=== PATIENT | male | born 1990 | race African-American/Black ===

== ENCOUNTER 2019-03-03 11:56 | Emergency (ER) | payer SELFPAY ==
[2019-03-03] MEDS ORDERED: Acetaminophen 500 MG TAB ONE (12:20)
[2019-03-03] MEDS ORDERED: Metoclopramide HCl 10 MG/2 ML VIAL ONE (12:20)
[2019-03-03] MEDS ORDERED: diphenhydrAMINE 50 MG/ML VIAL ONE (12:20)
[2019-03-03 12:41] LABS: #Basophils 0.1 thou/uL (0.0-0.2); #Eosinphils 0.1 thou/uL (0.0-0.7); #Lymphocytes 2.1 thou/uL (1.20-3.40); #Monocytes 0.6 thou/uL (0.11-0.59); #Neutrophils 4.7 thou/uL (1.40-6.50); %Basophils 0.9 % (0.0-1.0); %Eosinophils 1.5 % (0.0-10.0); %Lymphocytes 27.4 % (21.0-51.0); %Monocytes 7.5 % (0.0-10.0); %Neutrophils 62.7 % (42.0-75.0); Hemoglobin 14.9 g/dL (14.0-18.0); Mean Corpuscular Hemoglobin 25.2 pg (27.0-31.0); Mean Corpuscular Volume 81.4 fL (78.0-98.0); Mean Platelet Volume 10.1 fL (7.4-10.4); Platelet Count 171 thou/uL (130-400); RBC Distribution Width 12.8 % (11.5-14.5); Red Blood Cell (RBC) Count 5.92 mill/uL (4.70-6.10); White Blood Cell (WBC) Count 7.5 thou/uL (4.8-10.8)
--- NOTE | 2019-03-03 12:43 | CT ---
FHead CT without contrast 03/03/2019: COMPARISON: none HISTORY: Headache and hypertension TECHNIQUE: Axial CT imaging at 5 mm intervals from vertex through skull base without contrast FINDINGS: The imaged paranasal sinuses and mastoid air cells are well aerated. No displaced calvarial fracture. No intracranial hemorrhage, midline shift, mass effect, or ventricular enlargement. IMPRESSION: No acute findings.
[2019-03-03 13:02] LABS: ALT (SGPT) 36 U/L (8-55); AST (SGOT) 33 U/L (5-34); Alkaline Phosphatase 93 U/L (40-150); Anion Gap 10 mmol/L (10-20); BUN (Urea Nitrogen) 12 mg/dL (8.9-20.6); Bilirubin, Total 0.4 mg/dL (0.2-1.2); CK (CPK) 753 U/L (30-200); Calc. Creatinine Clearance 0 mL/min (70-130); Calcium 9.2 mg/dL (7.8-10.44); Carbon Dioxide 26 mmol/L (22-29); Chloride 107 mmol/L (98-107); Estimated GFR-MDRD 72; Glucose 106 mg/dL (70-105); Sodium 139 mmol/L (136-145)
[2019-03-03 13:28] LABS: Bilirubin Negative (Negative); Blood, Urine Negative (Negative); Clarity CLEAR (Clear); Glucose, Urine (Dipstick) Negative (Negative); Leukocyte Negative (Negative); Nitrite Negative (Negative); Protein, Urine (Dipstick) Negative (Neg-Trace); pH, Urine 7.5 (5.0-9.0)
== END 2019-03-03 13:47 | disposition home or self-care (01) ==
LOC: ERS 11:56
DX: I10 Essential (primary) hypertension (principal); R51 Headache; J45.909 Unspecified asthma, uncomplicated; F41.9 Anxiety disorder, unspecified
CPT/HCPCS: 70450; 80053; 81003; 82550; 84484; 85025; 96365; 96375; J1200; J2765

== ENCOUNTER 2020-06-19 22:36 | Observation (INO) | payer OTHER, SELFPAY ==
--- NOTE | 2020-06-19 23:16 | RAD ---
EXAM: CHEST ONE VIEW HISTORY: Possible Covid exposure at work. Cough, congestion, and chest discomfort. COMPARISON: None FINDINGS: The cardiac silhouette and pulmonary vasculature is within normal limits. The lungs are clear. The os seous structures are intact. IMPRESSION: No acute cardiopulmonary process.
[2020-06-20] MEDS ORDERED: Aspirin Chewable 81 MG TAB ONE
[2020-06-20] MEDS ORDERED: Nitroglycerin 2% Ointment 1 INCH/1 GM Packet ONE
[2020-06-20] MEDS ORDERED: Lisinopril 10 MG TAB ONE (00:01)
[2020-06-20 00:27] LABS: #Basophils 0.1 thou/uL (0.0-0.2); #Eosinphils 0.1 thou/uL (0.0-0.7); #Monocytes 0.7 thou/uL (0.11-0.59); #Neutrophils 4.1 thou/uL (1.40-6.50); %Basophils 1.2 % (0.0-1.0); %Lymphocytes 28.9 % (21.0-51.0); %Monocytes 9.7 % (0.0-10.0); %Neutrophils 59.3 % (42.0-75.0); Hemoglobin 14.2 g/dL (14.0-18.0); Mean Platelet Volume 10.1 fL (7.4-10.4); Platelet Count 184 thou/uL (130-400); RBC Distribution Width 12.9 % (11.5-14.5); Red Blood Cell (RBC) Count 5.92 mill/uL (4.70-6.10); White Blood Cell (WBC) Count 6.9 thou/uL (4.8-10.8)
[2020-06-20 00:48] LABS: ALT (SGPT) 43 U/L (8-55); AST (SGOT) 35 U/L (5-34); Albumin 4.4 g/dL (3.5-5.0); Alkaline Phosphatase 74 U/L (40-110); Anion Gap 12 mmol/L (10-20); BUN (Urea Nitrogen) 13 mg/dL (8.9-20.6); Bilirubin, Total 0.4 mg/dL (0.2-1.2); Calc. Creatinine Clearance 0 mL/min (70-130); Calcium 9.7 mg/dL (7.8-10.44); Carbon Dioxide 28 mmol/L (22-29); Chloride 102 mmol/L (98-107); Estimated GFR-MDRD Greater than 90; Globulin 3.1 g/dL (2.4-3.5); Glucose 76 mg/dL (70-105); Potassium 3.6 mmol/L (3.5-5.1); Protein, Total 7.5 g/dL (6.0-8.3); Sodium 138 mmol/L (136-145)
[2020-06-20] MEDS ORDERED: Morphine 4 MG/ML VIAL ONE (01:02)
[2020-06-20] MEDS ORDERED: Ondansetron PF 4 MG/2 ML Vial ONE (01:02)
--- NOTE | 2020-06-20 01:44 | PDOC.FPRHP ---
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 He rates the pain at 6 when it started and persistently worsened. He endorses dyspnea, notes nothing made the pain or symptoms better or worse. He also endorses cough that started at the same time his chest pain and dyspnea. He denies symptoms like this before. He did not take medications before coming to the ER. He has had a "bad migraine" for the yesterday and the day before. Upon arrival at ED he had a bp of 224/119, was given lisinopril and nitropaste and his bp decreased to 170/107. Patient states he hasn't been taking his home lisinopril due to them running out, is taking amlodipine but has missed some doses. PCP is in [place], [place]. Denies fever, congestion, nausea, vomiting. - Allergies/Adverse Reactions Allergies Allergy/AdvReac Type Severity Reaction Status Date / Time hydromorphone [From Dilaudid] Allergy Verified 06/20/20 03:09 - Home Medications Medication Instructions Recorded Confirmed Type Amlodipine [Norvasc] 5 mg PO QAM 06/20/20 06/20/20 History Lisinopril 5 mg PO QAM 06/20/20 06/20/20 History Multivitamin [Daily Multiple 1 tab PO QAM 06/20/20 06/20/20 History Vitamin] - History PMHx: Asthma, HTN, murmur as a child PSHx: R Knee and shoulder surgery FHx: Diabetes, Prostate CA, Colon CA Social:Black and Milds one QD for 1 year, occasional alcohol use, has smoked MJ , last use 03/2020 - Review of Systems General: denies: fever/chills, weight/appetite/sleep changes Eyes: denies: eye pain, vision changes ENT: denies: nasal congestion, rhinorrhea Respiratory: reports: cough, shortness of breath. denies: congestion Cardiovascular: reports: chest pain. denies: palpitation, edema Gastrointestinal: denies: nausea, vomiting, diarrhea, abdominal pain Genitourinary: denies: incontinence, dysuria Skin: denies: rashes, lesions Musculoskeletal: denies: pain, tenderness Neurological: denies: numbness, syncope Psychological: denies: anxiety, depression - Vital signs 170/106, MAP: 127, Pulse: 85, Resp: 16, Pain: 10, O2 sat: 96 on RA - Physical Exam Constitutional: NAD, awake, alert and oriented, well developed HEENT: normocephalic and atraumatic, conjunctiva clear, grossly normal hearing Neck: supple, FROM, other (acanthosis) Chest: no lesions, other (TTP on left side of chest wall laterally, along anterior axillary line) Heart: RRR, normal S1/S2, no murmurs/rubs/gallops Lungs: CTAB, no respiratory distress, no rales/rhonchi, no wheezing, no retractions Abdomen: soft, non-tender Musculoskeletal: normal structure, normal tone, ROM grossly normal Neurological: no focal deficit, normal sensation Skin: no rash/lesions, good turgor Heme/Lymphatic: no unusual bruising or bleeding, no purpura, no petechia Psychiatric: normal mood and affect, good judgment and insight, intact recent and remote memory FMR H&P: Results - Labs Result Diagrams: 06/20/20 00:15 06/20/20 00:15 Lab results: WBC 6.9 thou/uL (4.8-10.8) 06/20/20 00:15 Hgb 14.2 g/dL (14.0-18.0) 06/20/20 00:15 Hct 47.4 % (42.0-52.0) 06/20/20 00:15 MCV 80.0 fL (78.0-98.0) 06/20/20 00:15 Plt Count 184 thou/uL (130-400) 06/20/20 00:15 Neutrophils % 59.3 % (42.0-75.0) 06/20/20 00:15 Sodium 138 mmol/L (136-145) 06/20/20 00:15 Potassium 3.6 mmol/L (3.5-5.1) 06/20/20 00:15 Chloride 102 mmol/L (98-107) 06/20/20 00:15 Carbon Dioxide 28 mmol/L (22-29) 06/20/20 00:15 BUN 13 mg/dL (8.9-20.6) 06/20/20 00:15 Creatinine 1.08 mg/dL (0.7-1.3) 06/20/20 00:15 Glucose 76 mg/dL (70-105) 06/20/20 00:15 Calcium 9.7 mg/dL (7.8-10.44) 06/20/20 00:15 Total Bilirubin 0.4 mg/dL (0.2-1.2) 06/20/20 00:15 AST 35 U/L (5-34) H 06/20/20 00:15 ALT 43 U/L (8-55) 06/20/20 00:15 Alkaline Phosphatase 74 U/L (40-110) 06/20/20 00:15 B-Natriuretic Peptide Less than 10.0 pg/mL (0-100) 06/20/20 00:15 Serum Total Protein 7.5 g/dL (6.0-8.3) 06/20/20 00:15 Albumin 4.4 g/dL (3.5-5.0) 06/20/20 00:15 - EKG Interpretation EKG: NS, LVH FMR H&P: A/P - Plan Atypical Chest Pain TTP along lateral chest wall, chest pain likely 2/2 muscle strain Troponin x1 negative, EKG showing no ischemic changes - Heart Score 4 - Possibly HARPER complicating HTN. Can consider outpatient work up. - A1c as patient had acanthosis and fam history of DM - Endorsed some history of marijuana, but no recent use. UDS ordered. - Will trend troponin - Tylenol prn, Ibuprofen 800 scheduled, flexeril 5mg PO TID prn - Will continue to monitor on tele HTN BPs 224//119 at admission, now 170/ 107 Per patient, not taking home lisinopril - restart home norvasc 5mg daily and lisinopril 10mg daily - PRN hydralazine SBP >180 - q4hr vitals DVT PPX: SCDs PCP: none Code: Full LOS<48 hrs, admitted to tele obs for chest pain FMR H&P: Upper Level - Plan Date/Time: 06/20/20141 IRody MD, have evaluated this patient and agree with findings/plan as outlined by music industry internship resident. Pertinent changes/additions are listed here. This is a 28yo AA M who PMH of HTN presenting today after work due to chest pain. He reports chest pain is sharp, radiates down his arm and has tingling in L arm as well. He reports cough that is productive. Denies fever, chills, NVD, abd pain. Endorses palpitations. Endorses occasional headaches worse over the last day or so. Reports chest pain worse with inspiration and palpation. Admits to previous drug use but nothing recently. Patient states that he is on amlodipine and lisinopril for his HTN and he has not been taking the lisinopril at all. He has also missed doses of amlodipine. Reports fam hx of DM and HTN. On PE, patient with TTP of ant chest. RRR, no murmurs rubs or gallops. NAD, resting comfortably. No weakness in extremities. Will trend trop. Possibly HARPER complicating HTN. Can consider outpatient work up. Will get A1c as patient did have acanthosis and Fam Hx. Will get UDS. Case to be discussed with Dr. Andrade. Addendum - Attending - Attending Attestation Date/Time: 06/20/20 3901 I personally evaluated the patient and discussed the management with Dr. Jackson/ Thong. I agree with the History, Examination, Assessment and Plan documented above with any addition or exceptions noted below.
[2020-06-20] MEDS ORDERED: Acetaminophen 325 MG TAB PO PRN (04:13)
[2020-06-20] MEDS ORDERED: Cyclobenzaprine 10 MG TAB PO PRN (04:13)
[2020-06-20 05:08] LABS: Hemoglobin A1c 4.9 % (4.0-6.0)
[2020-06-20 05:22] VITALS: BMI 40.4
[2020-06-20 05:25] LABS: Amphetamine Not Detected (NotDetected); Barbiturates Screen Not Detected (NotDetected); Benzodiazepine Screen Not Detected (NotDetected); Cocaine Metabolite Screen Not Detected (NotDetected); Medtox Control Line Valid? VALID (VALID); Medtox Reader # READER 4; Methadone Not Detected (NotDetected); Methamphetamine Not Detected (NotDetected); Opiate Screen Not Detected (NotDetected); Oxycodone Screen Not Detected (NotDetected); Phencyclidine (PCP) Not Detected (NotDetected); THC/Cannabinoid Screen Detected (NotDetected); Tricyclic Screen Not Detected (NotDetected)
[2020-06-20 05:28] LABS: Troponin I Less than 0.010 ng/mL (< 0.028)
[2020-06-20] MEDS: Ibuprofen 800 MG TAB PO SCH ×3 (06:37→21:08)
[2020-06-20] MEDS: Amlodipine 5 MG TAB PO SCH (08:01)
[2020-06-20] MEDS: Lisinopril 10 MG TAB PO SCH (08:01)
[2020-06-20 08:13] LABS: Troponin I 0.013 ng/mL (< 0.028)
[2020-06-20] MEDS ORDERED: Regadenoson 0.4 MG/5 ML SYRINGE ONE (08:41)
[2020-06-20] MEDS: hydrALAZINE 20 MG/ML VIAL SLOW IVP PRN ×2 (13:29→21:15)
--- NOTE | 2020-06-21 05:50 | PDOC.FM ---
- Subjective Subjective: Pt resting comfortably at bedside. No complaint of CP overnight. Had one asymptomatic 2 second pause on telemetry @ 17:05 yesterday while he was sleeping. But had no events overnight. - Objective Vital Signs & Weight: Vital Signs (12 hours) Temp Pulse Resp BP Pulse Ox 06/21/20 03:38 97.8 F 62 20 141/84 H 97 06/21/20 00:00 98.3 F 67 20 154/77 H 97 06/20/20 21:15 63 06/20/20 20:07 97.8 F 63 18 186/89 H 99 Weight Weight 142.746 kg I&O: 06/19/20 06/20/20 06/21/20 06:59 06:59 06:59 Intake Total 1370 50 Output Total 1 Balance 1369 50 Result Diagrams: 06/20/20 00:15 06/20/20 00:15 Phys Exam - Physical Examination Constitutional: NAD HEENT: PERRLA Respiratory: no wheezing, no rales, no rhonchi, clear to auscultation bilateral Cardiovascular: RRR, no significant murmur, no rub Gastrointestinal: soft, non-tender, no distention, positive bowel sounds Musculoskeletal: no edema Psychiatric: normal affect, A&O x 3 Dx/Plan - Plan Plan: 28 y/o M with no PMHx presented to ED with chest pain. ##Atypical Chest Pain TTP along lateral chest wall, chest pain likely 2/2 muscle strain - cardiac vs. MSK vs. radiculopathy - Heart Score 4 - A1c 4.9 - Tylenol prn, Ibuprofen 800 scheduled, flexeril 5mg PO TID prn - Will continue to monitor on tele - echo ##HTN BPs 224//119 at admission Per patient, not taking home lisinopril Possibly HARPER complicating HTN. Can consider outpatient work up. - restart home norvasc 5mg daily and lisinopril 10mg daily - PRN hydralazine SBP >180 - q4hr vitals ##Marijuana Use - Endorsed some history of marijuana, but no recent use. UDS positive DVT PPX: SCDs PCP: none Code: Full Dispo: admitted to tele obs for chest pain. BP control. pending echo results. Addendum - Attending - Attending Attestation Date/Time: 06/21/20 1223 I personally evaluated the patient and discussed the management with Dr. Armando. I agree with the History, Examination, Assessment and Plan documented above with any addition or exceptions noted below. Patient here for HTN urgency due to med noncompliance and concern for ACS. His pain is MSK in nature. Stress test results hopefully today and suspect will be stable for discharge. Reviewing telemetry strip. Needs good outpatient follow up regarding his HTN control.
[2020-06-21] MEDS: Ibuprofen 800 MG TAB PO SCH ×2 (06:14→13:10)
[2020-06-21] MEDS: Lisinopril 10 MG TAB PO SCH (09:38)
[2020-06-21] MEDS: Amlodipine 5 MG TAB PO SCH (09:38)
[2020-06-21 11:54] VITALS: TEMP 98
--- NOTE | 2020-06-21 12:08 | NM ---
CARDIAC SPECT: CLINICAL HISTORY: 28-year-old male with chest pain, asthma, hypertension, and smoker. TECHNIQUE: A myocardial perfusion scan was performed using the single isotope two day protocol with 31 mCi techn etium-99m sestamibi injected intravenously for both stress and rest images. Pharmacologic stress with Lexiscan was monitored and interpreted by Dr. Alfred. FINDINGS: Fairly homogeneous tracer distribution is seen in the myocardial segments on stress and rest images w ithout fixed or reversible defects. GATED SPECT LVEF: 66%. WALL MOTION EXAM: Normal. IMPRESSION: Normal myocardial perfusion scan. POS: AH
[2020-06-21 14:33] VITALS: BP 145/89
--- NOTE | 2020-06-22 04:49 | DIS ---
DATE OF ADMISSION: 06/20/2020 DATE OF DISCHARGE: 06/21/2020 RESIDENT: Dr. Lay Armando. ADMITTING ATTENDING: Dr. Perez Andrade. DISCHARGE ATTENDING: Dr. Perez Andrade. CONSULTS: None. PROCEDURES: Chest x-ray showed no acute cardiopulmonary process. Nuclear medicine cardiac stress test showed a normal myocardial perfusion scan. PRIMARY DIAGNOSES: Atypical chest pain, hypertension. SECONDARY DIAGNOSIS: None. DISCHARGE MEDICATIONS: 1. Amlodipine 5 mg p.o. daily. 2. Lisinopril 10 mg p.o. daily. Discontinued medications: None. HISTORY OF PRESENT ILLNESS: This is a 28-year-old male with a past medical history of hypertension and asthma who presented for chest pain radiating to his neck and down his left arm with tingling in his hand that started suddenly in the afternoon while he was orientation at work. He stated that the pain was 6/10 when it started and persistently worsened. He endorsed dyspnea stated noted that nothing made the symptoms better or worse. He also endorsed cough that started at the same time as his chest pain and dyspnea. He denied symptoms like this before. He did not take any medications. Upon arrival at the ED, he had blood pressure of 224/119, he was given lisinopril and nitroglycerin paste and his blood pressure decreased to 170/107. He stated that he had not been taking his home lisinopril due to running out of medication, and admitted that he was missing his amlodipine doses. He denied fever, congestion , nausea, or vomiting. HOSPITAL COURSE: During his hospital course, the patient's chest pain was intermittent, and it was found that he had some radicular pain that radiated into his L arm in addition to his chest pain. Due to the patient having risk factors and a HeartScore of 4. A nuclear stress test was done with the results as above. His lab results were unremarkable. A1c was 4.9. His troponins were normal. The patient had an unremarkable telemetry strip and only had one 2-second bradycardic pause which was asymptomatic. The patient's blood pressures were initially high and then were noted to stable out on both medications, amlodipine and lisinopril. With blood pressure controlled, the patient's chest pain resolved and had some residual musculoskeletal pain that was reproducible upon palpation. Extensive counseling was done with the patient to take his hypertension medications and to follow up with his primary care provider. NSAIDs and physical therapy exercises were recommended for his radiculopathy pain. The patient agreed to plan. DISPOSITION: Stable. DISCHARGE INSTRUCTIONS: 1. Location: Home. 2. Diet: Regular. 3. Activity: As tolerated. 4. Followup: 1-2 weeks with PCP. Job ID: [id number] MTDD
--- NOTE | 2020-06-26 15:15 | STRESS ---
Acquisition Time: 2020-06-20 11:40:41 Total Exercise Time: 00:01:00 Test Indications: CHEST PAIN Medications: Protocol: LEXISCAN Max HR: 086 BPM 45% of Pred: 190 BPM Max BP: 140/100 mmHG Max Work Load: 1.0 METS RESTING ECG: NORMAL SINUS RHYTHM AT 64 BPM WITH POOR R-WAVE PROGRESSION AND NON-SPECIFIC T-WAVE CHANGES SYMPTOMS: NONE NORMAL BP RESPONSE ECTOPY: NONE ECG STRESS: NO SIGNIFICANT CHANGES INTERPRETATION: INDETERMINATE ECG/AWAIT NUCLEAR IMAGES FOR DEFINITIVE DIAGNOSIS Confirmed by CASIMIRO ARMSTRONG M.D. ([id number] on 06/26/2020 3:14:24 PM Referred By: DO Yesi MALONE Confirmed By:CASIMIRO ARMSTRONG M.D.
== END 2020-06-21 16:12 | disposition home or self-care (01) ==
LOC: ERS 22:36 → 2SE 06-20 01:48
PROVIDERS: ADMIT Emergency Medicine; ATTEND Emergency Medicine
DX: R07.89 Other chest pain (principal); I10 Essential (primary) hypertension; J45.909 Unspecified asthma, uncomplicated; F17.290 Nicotine dependence, other tobacco product, uncomplicated; Z79.899 Other long term (current) drug therapy; Z88.5 Allergy status to narcotic agent
CPT/HCPCS: 36415; 71045; 78452; 80053; 80306; 83036; 83880; 84484; 85025; 93005; 93010; 93017; 96374; 96375; 96376; A9500; G0378; J0360; J2270; J2405; J2785

== ENCOUNTER 2020-06-27 18:45 | Emergency (ER) | payer SELFPAY ==
[2020-06-27] MEDS ORDERED: Amlodipine 5 MG TAB ONE (19:52)
[2020-06-27] MEDS ORDERED: Lisinopril 10 MG TAB ONE (19:52)
[2020-06-27 21:27] LABS: Troponin I 0.013 ng/mL (< 0.028)
== END 2020-06-27 21:35 | disposition home or self-care (01) ==
LOC: ERS 18:45
DX: I10 Essential (primary) hypertension (principal); F41.9 Anxiety disorder, unspecified; J45.909 Unspecified asthma, uncomplicated; Z79.899 Other long term (current) drug therapy
CPT/HCPCS: 36415; 84484; 93005

== ENCOUNTER 2020-07-04 18:23 | Emergency (ER) | payer SELFPAY | END 2020-07-04 18:57 | disposition home or self-care (01) | LOC: ERS 18:23 | DX: R11.2 Nausea with vomiting, unspecified (principal) | CPT/HCPCS: 99281 ==

== ENCOUNTER 2020-08-24 10:54 | Emergency (ER) | payer SELFPAY ==
[2020-08-24 11:23] LABS: #Eosinphils 0.1 thou/uL (0.0-0.7); #Lymphocytes 1.2 thou/uL (1.20-3.40); #Monocytes 0.4 thou/uL (0.11-0.59); #Neutrophils 2.7 thou/uL (1.40-6.50); %Basophils 0.6 % (0.0-1.0); %Eosinophils 1.3 % (0.0-10.0); %Lymphocytes 26.8 % (21.0-51.0); %Neutrophils 62.3 % (42.0-75.0); Hemoglobin 14.8 g/dL (14.0-18.0); Mean Corpuscular HGB CONC 31.1 g/dL (32.0-36.0); Mean Corpuscular Hemoglobin 25.2 pg (27.0-31.0); Mean Corpuscular Volume 81.1 fL (78.0-98.0); Mean Platelet Volume 9.3 fL (7.4-10.4); Platelet Count 220 thou/uL (130-400); RBC Distribution Width 12.4 % (11.5-14.5); Red Blood Cell (RBC) Count 5.85 mill/uL (4.70-6.10); White Blood Cell (WBC) Count 4.3 thou/uL (4.8-10.8)
[2020-08-24 11:46] LABS: ALT (SGPT) 33 U/L (8-55); AST (SGOT) 25 U/L (5-34); Albumin 4.1 g/dL (3.5-5.0); Alkaline Phosphatase 67 U/L (40-110); Anion Gap 13 mmol/L (10-20); BUN (Urea Nitrogen) 12 mg/dL (8.9-20.6); Bilirubin, Total 0.4 mg/dL (0.2-1.2); CK (CPK) 596 U/L (30-200); Calc. Creatinine Clearance 0 mL/min (70-130); Calcium 8.9 mg/dL (7.8-10.44); Carbon Dioxide 24 mmol/L (22-29); Chloride 103 mmol/L (98-107); Estimated GFR-MDRD Greater than 90; Globulin 2.8 g/dL (2.4-3.5); Glucose 101 mg/dL (70-105); Potassium 4.1 mmol/L (3.5-5.1); Protein, Total 6.9 g/dL (6.0-8.3); Sodium 136 mmol/L (136-145)
[2020-08-24] MEDS ORDERED: Bacitracin 1 PK ONE (12:23)
[2020-08-24] MEDS ORDERED: Acetaminophen 500 MG TAB ONE (12:29)
[2020-08-24 13:40] LABS: Acetaminophen Less than 6.0 mcg/mL (10.0-30.0); Alcohol Less than 10 mg/dL (Less than 10); Salicylate Less than 8.0 mg/dL (15.0-30.0)
== END 2020-08-24 13:15 | disposition home or self-care (01) ==
LOC: ERS 10:54
DX: M79.10 Myalgia, unspecified site (principal); S81.801D Unspecified open wound, right lower leg, subsequent encounter; I10 Essential (primary) hypertension; J45.909 Unspecified asthma, uncomplicated; F17.210 Nicotine dependence, cigarettes, uncomplicated; Z79.899 Other long term (current) drug therapy
CPT/HCPCS: 36415; 80053; 80307; 82550; 84443; 85025; 93005; 96360; 96361

== ENCOUNTER 2020-08-24 14:41 | Emergency (ER) | payer SELFPAY ==
[2020-08-24 15:34] LABS: Bilirubin Negative (Negative); Blood, Urine Negative (Negative); Clarity Clear (Clear); Glucose, Urine (Dipstick) Normal (Negative); Ketone, Urine Negative (Negative); Leukocyte Negative Leu/uL (Negative); Nitrite Negative (Negative); Protein, Urine (Dipstick) 20 mg/dL (Neg-Trace); Specific Gravity, Urine 1.019 (1.002-1.036); Urobilinogen Normal mg/dL (Less than 2)
[2020-08-24 15:35] LABS: Acetaminophen Less than 6.0 mcg/mL (10.0-30.0); Alcohol Less than 10 mg/dL (Less than 10); Salicylate Less than 8.0 mg/dL (15.0-30.0)
[2020-08-24 15:45] LABS: Amphetamine Not Detected (NotDetected); Barbiturates Screen Not Detected (NotDetected); Benzodiazepine Screen Not Detected (NotDetected); Cocaine Metabolite Screen Not Detected (NotDetected); Medtox Control Line Valid? VALID (VALID); Medtox Reader # READER 1; Methadone Not Detected (NotDetected); Methamphetamine Not Detected (NotDetected); Opiate Screen Not Detected (NotDetected); Oxycodone Screen Not Detected (NotDetected); Phencyclidine (PCP) Not Detected (NotDetected); THC/Cannabinoid Screen Detected (NotDetected); Tricyclic Screen Not Detected (NotDetected)
== END 2020-08-24 18:16 | disposition home or self-care (01) ==
LOC: ERS 14:41
DX: F32.9 Major depressive disorder, single episode, unspecified (principal); F12.10 Cannabis abuse, uncomplicated; J45.909 Unspecified asthma, uncomplicated; I10 Essential (primary) hypertension; F17.210 Nicotine dependence, cigarettes, uncomplicated; Z79.899 Other long term (current) drug therapy
CPT/HCPCS: 36415; 80306; 80307; 81003; 84443; 99284

== ENCOUNTER 2020-09-03 13:21 | Emergency (ER) | payer SELFPAY ==
--- NOTE | 2020-09-03 13:58 | RAD ---
Left foot 3 views HISTORY: Injury. FINDINGS: Lisfranc joint alignment is anatomic. Loss of plantar arch on the lateral view. Mild osteophytosis throughout the midfoot. No acute fracture, dislocation, or aggressive osseous erosions. Old ununited ossific avulsion at the tip of the lateral malleolus. IMPRESSION : No acute osseous abnormalities are demonstrated. Pes planus.
== END 2020-09-03 14:12 | disposition home or self-care (01) ==
LOC: ERS 13:21
DX: S90.32XA Contusion of left foot, initial encounter (principal); J45.909 Unspecified asthma, uncomplicated; I10 Essential (primary) hypertension; F17.210 Nicotine dependence, cigarettes, uncomplicated; V03.99XA Pedestrian with other conveyance injured in collision with car, pick-up truck or van, unspecified whether traffic or nontraffic accident, initial encounter

== ENCOUNTER 2021-03-28 09:56 | Emergency (ER) | payer OTHER, SELFPAY ==
[2021-03-28] MEDS ORDERED: Amlodipine 5 MG TAB ONE ×2 (11:03→12:36)
[2021-03-28] MEDS ORDERED: Acetaminophen 500 MG TAB ONE (11:03)
[2021-03-28] MEDS ORDERED: Ketorolac Tromethamine 30 MG/ML VIAL ONE (11:03)
[2021-03-28] MEDS ORDERED: Lisinopril 10 MG TAB ONE ×2 (11:03→12:36)
[2021-03-28] MEDS ORDERED: Morphine 4 MG/ML VIAL ONE (11:40)
== END 2021-03-28 13:16 | disposition home or self-care (01) ==
LOC: ERS 09:56
DX: M54.2 Cervicalgia (principal); M54.9 Dorsalgia, unspecified; I10 Essential (primary) hypertension; J45.909 Unspecified asthma, uncomplicated; F17.210 Nicotine dependence, cigarettes, uncomplicated; V89.2XXA Person injured in unspecified motor-vehicle accident, traffic, initial encounter
CPT/HCPCS: 70450; 71045; 72125; 72128; 72131; 96374; 96375; J1885; J2270

== ENCOUNTER 2021-04-04 17:09 | Emergency (ER) | payer SELFPAY ==
[2021-04-04] MEDS ORDERED: Ketorolac Tromethamine 30 MG/ML VIAL ONE (18:34)
[2021-04-04] MEDS ORDERED: Fentanyl 100 MCG/2 ML VIAL ONE ×2 (18:34→18:38)
== END 2021-04-04 19:21 | disposition home or self-care (01) ==
LOC: ERS 17:09
DX: R25.2 Cramp and spasm (principal); J45.909 Unspecified asthma, uncomplicated; I10 Essential (primary) hypertension; F17.210 Nicotine dependence, cigarettes, uncomplicated; Z79.899 Other long term (current) drug therapy
CPT/HCPCS: 96372; 99283; J1885; J3010